=== PATIENT | male | born 1960 | race Two or more races ===

== ENCOUNTER 2016-11-19 16:50 | Emergency (ER) | payer OTHER ==
[~2016-11-19] VITALS: Ht 182.9 cm; Wt 136.1 kg
[~2016-11-19 16:50] MED LIST: ALBU18HF2 IH; ASPI81TA2 PO; BENA20TA2 PO; CARV6.252 PO; FURO40TA2 PO; ONDA4TAB5 PO; POTA10CA43 PO
[2016-11-19] MEDS ORDERED: Magnesium 1GM/D5W 100ML PREMIX 200 ML IV ONE (16:51)
[2016-11-19] MEDS ORDERED: ALBUTEROL FS 2.5 MG/3 ML VIAL.NEB CONTNEB ONE (17:00)
[2016-11-19] MEDS ORDERED: DEXAMETHASONE SOD PHOSPHATE 10 MG/ML VIAL IV ONE (17:00)
[2016-11-19] MEDS ORDERED: IPRATROPIUM NEB FS 0.5 MG/2.5 ML AMPUL.NEB NEB ONE (17:00)
[2016-11-19] MEDS ORDERED: IPRATROPIUM NEB FS 0.5 MG/2.5 ML AMPUL.NEB ONE (17:00)
[2016-11-19] MEDS ORDERED: ALBUTEROL FS 2.5 MG/3 ML VIAL.NEB ONE (17:00)
[2016-11-19 17:10] VITALS: BP 147/91
[2016-11-19] MEDS ORDERED: DEXAMETHASONE SOD PHOSPHATE 10 MG/ML VIAL ONE (17:10)
[2016-11-19] MEDS ORDERED: IV SET PRIMARY 1 EA INFUS.SET MC ONE (17:10)
[2016-11-19] MEDS ORDERED: Magnesium 1GM/D5W 100ML PREMIX 100 ML IV ONE ×2 (17:10→17:15)
[2016-11-19 17:14] LABS: ABG BASE EXCESS 2.4 mmol/L; ABG HCO3 27.9 mmol/L; ABG PCO2 47.3 mmHg (35.0-45.0); ABG PH 7.388 (7.350-7.450); ABG PO2 167.8 mmHg (75.0-100.0); ABG TOTAL HEMOGLOBIN 10.4 G/dL (13.5-18.0); ALLEN TEST Pass; O2Hb 97.6 % (94.0-97.0)
[2016-11-19] MEDS ORDERED: POTA10TA15 PO (17:20)
[2016-11-19 17:22] LABS: ANION GAP 7 (5-14); CARBON DIOXIDE 31 mmol/L (21-32); CHLORIDE 104 mmol/L (98-107); CREATININE 1.4 mg/dL (0.6-1.3); GFR 53 mL/min (>60); GLUCOSE 150 mg/dL (74-106); POTASSIUM 4.3 mmol/L (3.5-5.1); SODIUM SERUM 138 mmol/L (136-145); UREA NITROGEN, BLOOD 27 mg/dL (7-18)
[2016-11-19 17:25] LABS: BASOPHILS % (AUTO) 0.5 % (0.0-2.0); DIFF TOTAL % 100 %; EOSINOPHILS # (AUTO) 0.2 /CMM (0.0-0.7); EOSINOPHILS % (AUTO) 2.1 % (0.0-6.0); HEMATOCRIT 32 % (39-51); HEMOGLOBIN 9.8 g/dL (13.5-17.5); LYMPHOCYTES # (AUTO) 1.1 /CMM (0.8-4.8); LYMPHOCYTES % (AUTO) 13.4 % (20.0-44.0); MEAN CORPUSCULAR HEMOGLOBIN 22 PG (26.0-33.0); MEAN CORPUSCULAR HGB CONC 31 g/dl (31.0-36.0); MEAN CORPUSCULAR VOLUME 71 fL (80-96); MONOCYTES # (AUTO) 0.9 /CMM (0.1-1.30); MONOCYTES % (AUTO) 10.7 % (2.0-12.0); NEUTROPHILS % (AUTO) 73.3 % (43.0-81.0); PLATELET COUNT (AUTO) 276 /CMM (150-450); RED BLOOD CELL COUNT(AUTO) 4.48 MIL/uL (4.5-6.0); WHITE BLOOD COUNT (AUTO) 8.2 K/uL (4.3-11.0)
[2016-11-19 17:30] LABS: TROPONIN I 0.138 ng/mL (0.00-0.056)
[2016-11-19 17:34] LABS: ALANINE AMINOTRANSFERASE 23 U/L (12-78); ALBUMIN 2.9 g/dL (3.4-5.0); ASPARTATE AMINOTRANSFERASE 19 U/L (15-37); BILIRUBIN,DIRECT 0.2 mg/dL (0.0-0.2); BILIRUBIN,TOTAL 0.5 mg/dL (0.2-1.0); INDIRECT BILIRUBIN 0.3 mg/dL (0.0-1.1); TOTAL PROTEIN, SERUM 7.2 g/dL (6.4-8.2)
[2016-11-19] MEDS ORDERED: PROPOFOL 100 ML IV ONE (17:41)
[2016-11-19] MEDS ORDERED: IV SET PRIMARY PUMP SET 1 EA INFUS.SET MC ONE (17:41)
[2016-11-19] MEDS ORDERED: SODIUM BICARBONATE SYR 50 MEQ/50 ML DISP.SYRIN IV ONE (18:00)
[2016-11-19] MEDS ORDERED: SUCCINYLCHOLINE CHLORIDE 20 MG/ML VIAL IV ONE ×2 (18:00)
[2016-11-19] MEDS ORDERED: EPINEPHRINE (1:10,000) SYRINGE 1 MG/10 ML DISP.SYRIN IVP ONE (18:00)
[2016-11-19] MEDS ORDERED: ATROPINE SULFATE 1 MG/10 ML DISP.SYRIN IV ONE (18:00)
[2016-11-19] MEDS ORDERED: ETOMIDATE 2 MG/ML VIAL IV ONE ×2 (18:00)
[2016-11-19] MEDS ORDERED: PROPOFOL 100 ML IV PRN (18:00)
[2016-11-19 18:05] LABS: *LACTIC ACID REFLEX FLAG YES
[2016-11-19 18:18] LABS: ANISOCYTOSIS 1+; EOSINOPHILS % (MANUAL) 4 % (0-4); HYPOCHROMASIA 1+; LYMPHOCYTES % (MANUAL) 12 % (16-48); MICROCYTOSIS 1+; PLATELET ESTIMATE ADEQUATE; POLYCHROMASIA 1+
[2016-11-19 21:06] VITALS: BP 0/0
== END 2016-11-19 21:07 | disposition expired ==
LOC: ER 16:51
DX: I46.9 Cardiac arrest, cause unspecified (principal); J96.00 Acute respiratory failure, unspecified whether with hypoxia or hypercapnia; I10 Essential (primary) hypertension; F17.200 Nicotine dependence, unspecified, uncomplicated; Z79.82 Long term (current) use of aspirin
CPT/HCPCS: 36415; 36600; 71010-TC; 80048-TC; 80076-TC; 83605-TC; 83880; 84484-TC; 85025-TC; 87040-TC; 92950-TC; A4606; J0171; J0330; J0461; J1100; J3475; J3490; Z7610